=== PATIENT | female | born 1980 | race African-American/Black ===

== ENCOUNTER 2018-03-15 14:25 | Emergency (ER) | payer OTHER ==
[~2018-03-15] VITALS: Ht 152.4 cm; Wt 67.1 kg
[~2018-03-15 14:25] MED LIST: ALBUTEROL INHAL17 GM; BACITRACIN3.5 GM TOP; BACTRIM DS TAB1 EACH PO; BUTALB-APAP-CA1 EACH PO; HYDROXYZINE HCL25 M1 PO; IBUPROFEN 800800 M1 PO; IBUPROFEN 800800 MG PO; KEFLEX500 M1 PO; MACROBID 100 M100 M1 PO; MEDROLDOSEPACK PO; MONISTAT 3 COM1 EACH VG; ONDANSETRON HCL4 M2 PO; OSELB75 PO; PEPCID40 MG PO; PERCOCET 5-3251 EACH PO; PERCOCET PO; PREDNISONE 20 M20 M1 PO; PREDNISONE50 MG PO; PROVENTIL HFA6.7 G1 INH; TESSALON PERLE100 MG PO; TORADOL 10 MG T10 MG PO; TRAMADOL 50 MG50 MG PO; ZPAK PO
[2018-03-15] MEDS ORDERED: NAPROSYN500 MG PO (15:33)
[2018-03-15 15:49] VITALS: BP 128/73
== END 2018-03-15 15:50 | disposition home or self-care (01) ==
LOC: M.ERS 14:25
DX: M77.9 Enthesopathy, unspecified (principal); Z88.0 Allergy status to penicillin; Z88.5 Allergy status to narcotic agent; Z88.8 Allergy status to other drugs, medicaments and biological substances; Z88.6 Allergy status to analgesic agent; Z90.710 Acquired absence of both cervix and uterus; Z87.442 Personal history of urinary calculi

== ENCOUNTER 2018-05-25 16:50 | Emergency (ER) | payer OTHER ==
[~2018-05-25] VITALS: Ht 152.4 cm; Wt 68.0 kg
[~2018-05-25 16:50] MED LIST changes: +NAPROSYN500 MG PO
[2018-05-25 17:07] VITALS: BP 142/76
[2018-05-25] MEDS ORDERED: BACTRIM DS TAB1 EAC1 PO (17:19)
== END 2018-05-25 17:26 | disposition home or self-care (01) ==
LOC: M.ERS 16:50
DX: L03.312 Cellulitis of back [any part except buttock and flank] (principal); Z90.710 Acquired absence of both cervix and uterus; Z90.721 Acquired absence of ovaries, unilateral; Z88.0 Allergy status to penicillin; Z88.5 Allergy status to narcotic agent; Z88.8 Allergy status to other drugs, medicaments and biological substances

== ENCOUNTER 2019-01-06 13:21 | Emergency (ER) | payer OTHER ==
[~2019-01-06] VITALS: Ht 157.5 cm; Wt 72.6 kg
[~2019-01-06 13:21] MED LIST changes: +BACTRIM DS TAB1 EAC1 PO
[2019-01-06] MEDS ORDERED: TESSALON PERLE100 MG PO (14:06)
[2019-01-06] MEDS ORDERED: IBUPROFEN 800800 M1 PO (14:06)
[2019-01-06] MEDS ORDERED: MEDROLDOSEPACK PO (14:06)
[2019-01-06] MEDS ORDERED: ROBITUSSIN100 MG/53 PO (14:06)
[2019-01-06] MEDS ORDERED: CLEOCIN HCL150 MG PO (14:06)
[2019-01-06 14:25] VITALS: BP 117/74
[2019-01-06 14:39] LABS: ABSOLUTE BASOPHILS 0.1 thou/uL (0.0-0.2); ABSOLUTE EOSINOPHILS 0.2 thou/uL (0.0-0.7); ABSOLUTE LYMPHOCYTES 1.9 thou/uL (0.8-5.3); ABSOLUTE MONOCYTES 0.7 thou/uL (0.0-1.2); ABSOLUTE NEUTROPHILS 4.6 thou/uL (1.6-8.1); BASOPHILS 1.2 %; EOSINOPHILS 2.2 %; HEMATOCRIT 33.9 % (37.0-47.0); HEMOGLOBIN 11.4 gm/dL (12.0-15.0); LYMPHOCYTES 25.9 %; MCH 30.2 pg (26.0-34.0); MCHC 33.7 g/dL (28.0-37.0); MCV 89.5 fL (80.0-100.0); MONOCYTES 9.6 %; MPV 7.4 fl. (7.2-11.1); NUCLEATED RBCS 0 /100WBC; PLATELET COUNT* 402 thou/uL (150-400); POLYS 61.1 %; RBC 3.79 mil/uL (4.20-5.00); WBC 7.5 thou/uL (4.0-11.0)
[2019-01-06 15:04] LABS: ALBUMIN 3.5 g/dL (3.4-5.0); ALKALINE PHOSPHATASE 92 U/L (46-116); ANION GAP 6 mmol/L (7-16); BUN 13 mg/dL (7-18); CALCIUM 8.7 mg/dL (8.5-10.1); CHLORIDE 101 mmol/L (98-107); CO2 29 mmol/L (21-32); CREATININE 0.9 mg/dL (0.6-1.3); GLUCOSE 95 mg/dL (70-99); POTASSIUM 3.5 mmol/L (3.5-5.1); SGOT 18 U/L (15-37); SGPT 30 U/L (30-65); SODIUM 136 mmol/L (136-145); TOTAL BILIRUBIN 0.1 mg/dL (<0.1-1.0); TOTAL PROTEIN 7.6 g/dL (6.4-8.2); TROPONIN-I LEVEL <0.06 ng/mL (<0.06)
--- NOTE | 2019-01-06 16:48 | EKG ---
[place] [address] ELECTROCARDIOGRAM REPORT Name: HANY STUART Room: [facility]#: [id number] Admission: 01/06/19 Attend Phys: Discharge: 01/06/19 Date of : 82 Report #: [id number] THIS REPORT FOR: //name// [facility] Test Date: 2019-01-06 Test Time: 14:23:12 Pat Name: HANY STUART Department: Room: Gender: F Sales And Marketing Intern: NEEL : 1980 Requested By: Hany Hall Order Number: [id number] MD: Barrett Mcclain Measurements Intervals [place] Rate: 84 P: 12 NM: 145 QRS: 13 QRSD: 83 T: 63 QT: 362 QTc: 428 Interpretive Statements Sinus rhythm nonspecific t wave changes No previous ECG available for comparison Electronically Signed On 01-06-2019 16:48:06 [employer] by Barrett Mcclain [email or web address] <ELECTRONICALLY SIGNED> By: Barrett Mcclain MD, [facility] 01/06/19 1648 1423 1423 Barrett Mcclain MD, FACC /EPI
== END 2019-01-06 14:27 | disposition home or self-care (01) ==
LOC: M.ERS 13:21
PROVIDERS: Physician Assistant
DX: J01.90 Acute sinusitis, unspecified (principal); L08.89 Other specified local infections of the skin and subcutaneous tissue; Z90.710 Acquired absence of both cervix and uterus; Z87.442 Personal history of urinary calculi; Z90.721 Acquired absence of ovaries, unilateral; Z85.43 Personal history of malignant neoplasm of ovary; Z88.8 Allergy status to other drugs, medicaments and biological substances; Z88.5 Allergy status to narcotic agent; Z88.0 Allergy status to penicillin; Z88.4 Allergy status to anesthetic agent

== ENCOUNTER 2019-05-05 17:04 | Emergency (ER) | payer OTHER ==
[~2019-05-05] VITALS: Ht 152.4 cm; Wt 61.2 kg
[~2019-05-05 17:04] MED LIST changes: +CLEOCIN HCL150 MG PO; +ROBITUSSIN100 MG/53 PO
[2019-05-05 17:30] LABS: ABSOLUTE BASOPHILS 0.1 thou/uL (0.0-0.2); ABSOLUTE EOSINOPHILS 0.3 thou/uL (0.0-0.7); ABSOLUTE LYMPHOCYTES 3.6 thou/uL (0.8-5.3); ABSOLUTE MONOCYTES 0.6 thou/uL (0.0-1.2); ABSOLUTE NEUTROPHILS 5.1 thou/uL (1.6-8.1); BASOPHILS 1.2 %; EOSINOPHILS 2.8 %; HEMATOCRIT 37.4 % (37.0-47.0); HEMOGLOBIN 12.4 gm/dL (12.0-15.0); LYMPHOCYTES 37.2 %; MCH 29.5 pg (26.0-34.0); MCHC 33.1 g/dL (28.0-37.0); MCV 89.2 fL (80.0-100.0); MONOCYTES 6.1 %; MPV 7.7 fl. (7.2-11.1); NUCLEATED RBCS 0 /100WBC; PLATELET COUNT* 452 thou/uL (150-400); POLYS 52.7 %; RBC 4.19 mil/uL (4.20-5.00); RDW-CV 13.6 % (10.5-14.5); WBC 9.8 thou/uL (4.0-11.0)
[2019-05-05 17:41] LABS: ANION GAP 11 mmol/L (7-16); BUN 17 mg/dL (7-18); CALCIUM 9.4 mg/dL (8.5-10.1); CHLORIDE 104 mmol/L (98-107); CO2 27 mmol/L (21-32); CREATININE 0.9 mg/dL (0.6-1.3); GLUCOSE 94 mg/dL (70-99); POTASSIUM 3.9 mmol/L (3.5-5.1); SODIUM 142 mmol/L (136-145)
[2019-05-05 17:52] LABS: ALKALINE PHOSPHATASE 89 U/L (46-116); NT-PRO BRAIN NAT PEPTIDE 18 pg/mL (<300); SGOT 20 U/L (15-37); SGPT 33 U/L (30-65); TOTAL BILIRUBIN 0.1 mg/dL (<0.1-1.0); TOTAL PROTEIN 8.4 g/dL (6.4-8.2); TROPONIN-I LEVEL <0.06 ng/mL (<0.06)
[2019-05-05 17:57] LABS: APTT 28.6 Seconds (25.0-31.3); PROTIME 10.1 Seconds (9.20-11.50)
[2019-05-05 19:04] VITALS: BP 148/79
--- NOTE | 2019-05-06 14:01 | EKG ---
[place] [address] ELECTROCARDIOGRAM REPORT Name: HANY STUART Room: [facility]#: [id number] Admission: 05/05/19 Attend Phys: Discharge: 05/05/19 Date of : 82 Report #: [id number] THIS REPORT FOR: //name// [facility] ED Test Date: 2019-05-05 Test Time: 17:14:32 Pat Name: HANY STUART Department: Room: Gender: F Urgent Care Nurse Practitioner: : 1980 Requested By: Gerald Smith Order Number: [id number] MD: Nasir Churchill Measurements Intervals [place] Rate: 74 P: 18 [place]: 145 QRS: 8 QRSD: 85 T: 66 QT: 394 QTc: 438 Interpretive Statements Sinus rhythm Consider left ventricular hypertrophy Compared to ECG 01/06/2019 14:23:12 T-wave abnormality no longer present Electronically Signed On 05-06-2019 14:00:49 CDT by Nasir Churchill [email or web address] <ELECTRONICALLY SIGNED> By: Nasir Churchill MD, [facility] 05/06/19 1400 1714 171 Nasir Churchill MD, FACC /EPI
== END 2019-05-05 19:04 | disposition home or self-care (01) ==
LOC: M.ERS 17:04
PROVIDERS: Family Medicine
DX: F41.9 Anxiety disorder, unspecified (principal); Z88.5 Allergy status to narcotic agent; Z88.6 Allergy status to analgesic agent; Z88.0 Allergy status to penicillin; Z88.8 Allergy status to other drugs, medicaments and biological substances; Z90.710 Acquired absence of both cervix and uterus; Z87.442 Personal history of urinary calculi; Z85.43 Personal history of malignant neoplasm of ovary; Z90.721 Acquired absence of ovaries, unilateral

== ENCOUNTER 2021-04-19 22:49 | Emergency (ER) | payer OTHER ==
[~2021-04-19] VITALS: Ht 152.4 cm; Wt 72.6 kg
[2021-04-20] MEDS ORDERED: EPIPEN 2-P0.3 MG/0.3 IM (00:16)
[2021-04-20] MEDS ORDERED: PREDNISONE50 MG PO (00:16)
[2021-04-20 00:33] VITALS: BP 108/69
== END 2021-04-20 00:35 | disposition home or self-care (01) ==
LOC: M.ERS 22:49
DX: T78.40XA Allergy, unspecified, initial encounter (principal); X58.XXXA Exposure to other specified factors, initial encounter; Z90.710 Acquired absence of both cervix and uterus; Z98.82 Breast implant status; Z85.43 Personal history of malignant neoplasm of ovary; Z90.721 Acquired absence of ovaries, unilateral; Z88.8 Allergy status to other drugs, medicaments and biological substances; Z88.5 Allergy status to narcotic agent; Z88.0 Allergy status to penicillin

== ENCOUNTER 2021-09-20 11:54 | Inpatient (IN) | payer OTHER ==
[~2021-09-20] VITALS: Ht 121.9 cm; Wt 70.3 kg
[~2021-09-20 11:54] MED LIST changes: +EPIPEN 2-P0.3 MG/0.3 IM
[2021-09-20 11:56] VITALS: BP 120/96
[2021-09-20 12:22] LABS: ABSOLUTE BASOPHILS 0.1 thou/uL (0.0-0.2); ABSOLUTE EOSINOPHILS 0.2 thou/uL (0.0-0.7); ABSOLUTE LYMPHOCYTES 3.8 thou/uL (0.8-5.3); ABSOLUTE MONOCYTES 0.5 thou/uL (0.0-1.2); ABSOLUTE NEUTROPHILS 3.7 thou/uL (1.6-8.1); BASOPHILS 0.7 %; EOSINOPHILS 2.4 %; LYMPHOCYTES 45.9 %; MCH 29.7 pg (26.0-34.0); MCHC 33.3 g/dL (28.0-37.0); MCV 89.1 fL (80.0-100.0); MONOCYTES 5.6 %; MPV 7.3 fl. (7.2-11.1); NUCLEATED RBCS 0 /100WBC; PLATELET COUNT* 484 thou/uL (150-400); POLYS 45.4 %; RBC 4.38 mil/uL (4.20-5.00); WBC 8.2 thou/uL (4.0-11.0)
[2021-09-20 12:30] LABS: CALCIUM 9.5 mg/dL (8.5-10.1); CREATININE 0.9 mg/dL (0.6-1.3); POTASSIUM 3.8 mmol/L (3.5-5.1)
[2021-09-20 12:34] LABS: TOTAL BILIRUBIN 0.3 mg/dL (<0.1-1.0)
[2021-09-20] MEDS ORDERED: PRAZOSIN 1 MG CA1 M1 PO (15:13)
[2021-09-20] MEDS ORDERED: RIZATRIPTAN10 M1 PO (15:14)
[2021-09-20] MEDS ORDERED: AMITRIPTYLINE H50 M2 PO (15:15)
[2021-09-20] MEDS ORDERED: LEXAPRO 10 MG T10 M1 PO (15:15)
[2021-09-20] MEDS ORDERED: HYDROXYZINE HCL25 M2 PO (15:16)
[2021-09-20 17:25] VITALS: BP 120/96
--- NOTE | 2021-09-20 17:39 | 2DMMODE ---
[place] [address] 2 D/M-MODE ECHOCARDIOGRAM Name: HANY STUART Room: [address] IN [facility]#: [id number] Admission: 09/20/21 Attend Phys: Favian Barney Discharge: 09/20/21 Date of : 82 Date of Service: 09/20/21 1739 Report #: [id number] THIS REPORT FOR: cc: Laurence Proctor MD, Karla L. MD Liston, Michael J. MD [facility] ~ APPROVED REPORT Study performed: 09/20/2021 16:32:49 EXAM: Comprehensive 2D, Doppler, and color-flow Echocardiogram Patient Location: In-Patient Room #: er Status: routine BSA: 1.65 HR: 86 bpm BP: 120/96 mmHg Rhythm: NSR Other Information Study Quality: Good Indications CVA/TIA Echo Enhancing Agent Indication: Rule out Shunt Agent(s) / Amount(s) Used: Agitated Saline 10 cc 2D Dimensions IVSd: 8.66 (7-11mm) LVOT Diam: 19.68 (18-24mm) LVDd: 41.05 mm PWd: 7.81 (7-11mm) Ascending Ao: 26.84 (22-36mm) LVDs: 28.36 (25-40mm) Aortic Root: 27.30 mm Volumes Left Atrial Volume (Systole) LA ESV Index: 16.30 mL/m2 Aortic Valve AoV Peak Enrrique.: 1.10 m/s AO Peak Gr.: 4.84 mmHg LVOT Max P.50 mmHg AO Mean Gr.: 2.30 mmHg LVOT Mean P.51 [place] [address] 2 D/M-MODE ECHOCARDIOGRAM Name: HANY STUART Room: [address] IN [facility].#: [id number] Admission: 09/20/21 Attend Phys: Favian Barney Discharge: Date of : 82 Date of Service: 09/20/21 1739 Report #: [id number] LVOT Max V: 0.94 m/s AO V2 VTI: 17.85 cm LVOT Mean V: 0.55 m/s NENITA (VTI): 2.66 cm2 LVOT V1 VTI: 15.63 cm Mitral Valve E/A Ratio: 1.28 MV Decel. Time: 194.76 ms MV E Max Enrrique.: 0.57 m/s MV PHT: 56.48 ms MVA (PHT): 3.90 cm2 TDI E/Lateral E': 4.38 E/Medial E': 4.75 Medial E' Enrrique.: 0.12 m/s Lateral E' Enrrique.: 0.13 m/s Pulmonary Valve PV Peak Enrrique.: 0.96 m/s PV Peak Gr.: 3.71 mmHg Left Ventricle The left ventricle is normal size. There is normal LV segmental wall motion. There is normal left ventricular wall thickness. Left ventricular systolic function is normal. LVEF is 65-70%. The left ventricular diastolic function is normal. Right Ventricle The right ventricle is normal size. The right ventricular systolic function is normal. Atria The left atrium size is normal. Echocardiographic visualization not adequate for interpretation of bubble study. The right atrium size is normal. Aortic Valve The aortic valve is normal in structure. No aortic regurgitation is present. There is no aortic valvular stenosis. Mitral Valve The mitral valve is normal in structure. There is no mitral valve regurgitation noted. No evidence of mitral valve stenosis. Tricuspid Valve The tricuspid valve is normal in structure. There is no tricuspid [place] [address] 2 D/M-MODE ECHOCARDIOGRAM Name: HANY STUART Genie Room: [address] IN [facility]#: [id number] Admission: 09/20/21 Attend Phys: Favian Barney Discharge: Date of : 82 Date of Service: 09/20/21 1739 Report #: [id number] Pulmonic Valve The pulmonary valve is normal in structure. There is no pulmonic valvular regurgitation. Great Vessels The aortic root is normal in size. IVC is not well visualized. Pericardium There is no pericardial effusion. <Conclusion> The left ventricle is normal size. There is normal left ventricular wall thickness. Left ventricular systolic function is normal. LVEF is 65-70%. The left ventricular diastolic function is normal. Echocardiographic visualization not adequate for interpretation of bubble study. Consider PIPO if clinically indicated to rule out shunt. <ELECTRONICALLY SIGNED> By: Star Obrien MD, FACC 09/20/21 1739 173 173 Star Obrien MD, FACC /INF
--- NOTE | 2021-09-21 09:39 | EKG ---
[place] [address] ELECTROCARDIOGRAM REPORT Name: NARCISOHANY Room: [address] IN [facility]#: [id number] Admission: 09/20/21 Attend Phys: Favian Barney Discharge: 09/20/21 Date of : 82 Date of Service: 09/20/21 1219 Report #: [id number] THIS REPORT FOR: //name// [facility] ED Test Date: 2021-09-20 Test Time: 12:19:01 Pat Name: HANY STUART Department: Room: [facility] Gender: F Community Recreation Coordinator: : 1980 Requested By: Javier Porter Order Number: [id number] MD: Barrett Mcclain Measurements Intervals [place] Rate: 75 P: -7 [place]: 191 QRS: 3 QRSD: 99 T: -4 QT: 416 QTc: 465 Interpretive Statements Sinus rhythm artifact noted Borderline T abnormalities, inferior leads Baseline wander in lead(s) I No previous ECG available for comparison Electronically Signed On 09-21-2021 9:39:44 [employer] by Barrett Mcclain [email or web address] <ELECTRONICALLY SIGNED> By: Barrett Mcclain MD, FACC 09/21/21 0939 1219 1219 Barrett Mcclain MD, [facility] /EPI
== END 2021-09-20 17:25 | disposition left against medical advice (07) | DRG 103 ==
LOC: M.ERS 11:54 → M.TBA-ER 13:59
PROVIDERS: Emergency Medicine Emergency Medical Services; ADMIT Internal Medicine; ATTEND Internal Medicine
DX: G43.909 Migraine, unspecified, not intractable, without status migrainosus (principal); F32.A Depression, unspecified; F41.0 Panic disorder [episodic paroxysmal anxiety]; F41.9 Anxiety disorder, unspecified; R53.83 Other fatigue; Z53.29 Procedure and treatment not carried out because of patient's decision for other reasons; Z88.6 Allergy status to analgesic agent; Z88.5 Allergy status to narcotic agent; Z88.8 Allergy status to other drugs, medicaments and biological substances; Z98.1 Arthrodesis status; Z85.41 Personal history of malignant neoplasm of cervix uteri